=== PATIENT | female | born 1985 | race Caucasian/White ===

== ENCOUNTER 2017-06-08 12:31 | Emergency (ER) | payer OTHER ==
[2017-06-08 12:43] VITALS: BMI 19.9
[2017-06-08] MEDS ORDERED: Belladonna-Phenobarbital PO STA (13:17)
[2017-06-08] MEDS ORDERED: Lactated Ringer's 1,000 ML IVB STA (13:18)
[2017-06-08 13:48] LABS: BASO % 0.3 % (0.0-2.0); EOS # 0.1 K/uL (0.0-0.7); EOS % 1.6 % (0.0-4.0); HEMOGLOBIN 12.7 g/dL (11.0-16.0); LYMPH # 1.3 K/uL (1.0-4.3); LYMPH % 15.3 % (20.0-40.0); MEAN CELL VOLUME 88.6 fL (81.0-99.0); MEAN CORPUSCULAR HEMOGLOBIN 29.6 pg (27.0-31.0); MEAN CORPUSCULAR HGB CONC 33.5 g/dL (33.0-37.0); MEAN PLATELET VOLUME 7.9 fL (7.2-11.7); MONO # 0.5 K/uL (0.0-0.8); MONO % 5.9 % (0.0-10.0); NEUT # 6.5 K/uL (1.8-7.0); NEUT % 76.9 % (50.0-75.0); RBC 4.3 Mil/uL (3.80-5.20); RED CELL DISTRIBUTION WIDTH 13.8 % (11.5-14.5); WHITE BLOOD COUNT 8.5 K/uL (4.8-10.8)
[2017-06-08 13:49] LABS: HCG,QUALITATIVE URINE NEGATIVE (NEGATIVE)
[2017-06-08 13:51] LABS: SQUAMOUS EPITHIAL 1 /hpf (0-5); URINE BILIRUBIN NEGATIVE (NEGATIVE); URINE BLOOD NEGATIVE (NEGATIVE); URINE CLARITY Clear (Clear); URINE COLOR Yellow (YELLOW); URINE GLUCOSE (UA) NORMAL (Normal); URINE LEUKOCYTE ESTERASE NEG Leu/uL (Negative); URINE PROTEIN NEGATIVE (NEGATIVE)
[2017-06-08] MEDS ORDERED: Belladonna-Phenobarbital ONE (13:54)
[2017-06-08] MEDS ORDERED: Lactated Ringer's 1,000 ML ONE (13:54)
--- NOTE | 2017-06-08 14:05 | C.PDOC ---
Time Seen by Provider: 06/08/17 13:07 Chief Complaint (Nursing): GI Problem History Per: Patient Onset/Duration Of Symptoms: Days (about 1 week) Current Symptoms Are (Timing): Still Present Context: Travel Severity: Moderate Location Of Pain/Discomfort: Diffuse Radiation Of Pain To:: None Quality Of Discomfort: Cramping Associated Symptoms: Nausea, Vomiting (since yesterday), Diarrhea (watery) Exacerbating Factors: Food Alleviating Factors: None Last Bowel Movement: Today Recent travel outside of the [place]: Yes ([place]) Additional History Per: Prior Records Past Medical History Reviewed: Historical Data, Nursing Documentation, Vital Signs Vital Signs: Last Vital Signs Temp 98.6 F 06/08/17 12:44 Pulse 107 H 06/08/17 12:44 Resp 20 06/08/17 12:44 BP 101/71 06/08/17 12:44 Pulse Ox 100 06/08/17 14:05 - Medical History PMH: Kidney Stones - [facility] Procedures CYSTOSCOPY NEC (01/31/14) TU REMOV URETER OBSTRUCT (02/26/14) URETERAL CATHETERIZATION (01/31/14) URETEROSCOPY (02/26/14) Family History: States: Unknown Family Hx - Social History Hx Tobacco Use: Yes Hx Alcohol Use: Yes Hx Substance Use: No - Immunization History Hx Tetanus Toxoid Vaccination: No Hx Influenza Vaccination: No Hx Pneumococcal Vaccination: No Review Of Systems Except As Marked, All Systems Reviewed And Found Negative. Constitutional: Negative for: Weakness Cardiovascular: Negative for: Chest Pain Respiratory: Negative for: Shortness of Breath Gastrointestinal: Positive for: Nausea, Vomiting, Abdominal Pain, Diarrhea. Negative for: Melena, Hematochezia, Hematemesis Genitourinary: Negative for: Dysuria Musculoskeletal: Negative for: Neck Pain, Back Pain Skin: Negative for: Rash Neurological: Negative for: Weakness, Numbness Physical Exam - Physical Exam Appears: Non-toxic, No Acute Distress Skin: Normal Color, Warm, Dry, No Rash Head: Atraumatic, Normacephalic Eye(s): bilateral: Normal Inspection, PERRL, EOMI Neck: Normal ROM, Supple Cardiovascular: Rhythm Regular Respiratory: Normal Breath Sounds, No Accessory Muscle Use Gastrointestinal/Abdominal: Soft, No Tenderness, No Distention Back: No CVA Tenderness Extremity: Normal ROM Neurological/Psych: Oriented x3, Normal Motor, Normal Sensation ED Course And Treatment - Laboratory Results Result Diagrams: 06/08/17 13:40 06/08/17 13:40 Lab Interpretation: No Acute Changes Urine POC: Negative O2 Sat by Pulse Oximetry: 100 Pulse Ox Interpretation: Normal Reassessment Condition: Improved Progress - Interventions Interventions:: Observation, Intravenous fluid - Medications Administered Intravenous: Antiemetic - Data Reviewed Data Reviewed: Lab, Old records - Patient Status Patient status: Mostly improved - Continuity of Care Discussed patient case with:: Patient, ED Nurse - Patient Plan Patient Plan: Discharge, F/U with PCP Disposition Counseled Patient/Family Regarding: Studies Performed, Diagnosis, Need For Followup, Rx Given - Disposition Disposition: HOME/ ROUTINE Disposition Time: 14:30 Condition: IMPROVED Additional Instructions: Drink plenty of fluids. Follow up with your doctor. Return to the ER if you develop bloody diarrhea, not tolerating fluids, worsening of symptoms or if you have any other concerns. Prescriptions: Bismuth Subsalicylate [Pepto Bismol] 2 tab PO Q1 PRN #16 ctb PRN Reason: Diarrhea Ciprofloxacin [Cipro] 1 tab PO BID #8 tab Metoclopramide [Reglan] 1 tab PO TID PRN #15 tab PRN Reason: Nausea/Vomiting Instructions: Diarrhea and Traveler's Diarrhea, Adult (DC) Forms: [employer] (Romansh) - Clinical Impression Clinical Impression: Gastroenteritis
[2017-06-08 14:20] LABS: ALB/GLOB RATIO 1.1 (1.0-2.1); ALBUMIN 3.9 g/dL (3.5-5.0); ALT/SGPT 7 U/L (9-52); AST/SGOT 23 U/L (14-36); BLOOD UREA NITROGEN 12 mg/dL (7-17); CALCIUM 8.7 mg/dl (8.6-10.4); GFR AFRICAN-AMERICAN > 60; GFR NON-AFRICAN AMERICAN > 60; LIPASE 100 U/L (23-300)
[2017-06-08 14:57] VITALS: BP 104/70; PULSE 94; RESP 18; TEMP 98.2; O2SAT 98
== END 2017-06-08 14:55 | disposition home or self-care (01) ==
LOC: C.ER 12:31
DX: K52.9 Noninfective gastroenteritis and colitis, unspecified (principal); Z72.0 Tobacco use
CPT/HCPCS: 80053; 81001; 83690; 84703; 85025; 96374; 99284; J2405; J7120

== ENCOUNTER 2017-08-28 17:36 | Emergency (ER) | payer OTHER ==
[2017-08-28 17:36] VITALS: BMI 19.9
[2017-08-28] MEDS ORDERED: Sodium Chloride 0.9% 1,000 ML IV ONE (18:37)
[2017-08-28 18:54] LABS: SQUAMOUS EPITHIAL 4 /hpf (0-5); URINE BILIRUBIN NEGATIVE (NEGATIVE); URINE BLOOD NEGATIVE (NEGATIVE); URINE CLARITY Hazy (Clear); URINE COLOR Yellow (YELLOW); URINE GLUCOSE (UA) NORMAL (Normal); URINE LEUKOCYTE ESTERASE NEG Leu/uL (Negative); URINE PROTEIN NEGATIVE (NEGATIVE); URINE UROBILINOGEN NORMAL mg/dL (0.2-1.0)
--- NOTE | 2017-08-28 18:57 | C.PDOC ---
History Of Present Illness 32 year old female presents to the ED for evaluation of abdominal pain. Patient states her last period was in mid-July. Patient took two tests at home , which were both negative. Patient denies fever, chills. Surgical history includes one . Patient has history of kidney stones. She denies allergies. Patient states she smokes around 5 cigarettes/day. Denies alcohol use. Time Seen by Provider: 08/28/17 18:12 Chief Complaint (Nursing): Abdominal Pain History Per: Patient History/Exam Limitations: no limitations Onset/Duration Of Symptoms: Days Current Symptoms Are (Timing): Still Present Location Of Pain/Discomfort: Diffuse Quality Of Discomfort: "Pain" Additional History Per: Patient Abnormal Vaginal Bleeding: No Past Medical History Reviewed: Historical Data, Nursing Documentation, Vital Signs Vital Signs: Last Vital Signs Temp 98.7 F 08/28/17 22:01 Pulse 71 08/28/17 22:01 Resp 18 08/28/17 22:01 BP 101/64 08/28/17 22:01 Pulse Ox 97 08/28/17 22:01 - Medical History PMH: Kidney Stones - [facility] Procedures CYSTOSCOPY NEC (01/31/14) TU REMOV URETER OBSTRUCT (02/26/14) URETERAL CATHETERIZATION (01/31/14) URETEROSCOPY (02/26/14) Family History: States: Unknown Family Hx - Social History Hx Tobacco Use: Yes Hx Alcohol Use: Yes Hx Substance Use: Yes - Immunization History Hx Tetanus Toxoid Vaccination: (unk) Hx Influenza Vaccination: No Hx Pneumococcal Vaccination: (unk) Review Of Systems Constitutional: Negative for: Fever, Chills ENT: Negative for: Ear Pain Cardiovascular: Negative for: Chest Pain, Palpitations Respiratory: Negative for: Cough, Shortness of Breath Gastrointestinal: Positive for: Nausea, Abdominal Pain Genitourinary: Negative for: Dysuria, Frequency, Incontinence Musculoskeletal: Negative for: Neck Pain, Shoulder Pain Skin: Negative for: Rash Neurological: Negative for: Weakness Physical Exam - Physical Exam Appears: Non-toxic, No Acute Distress Skin: Normal Color, Warm, Dry Head: Atraumatic, Normacephalic Eye(s): bilateral: Normal Inspection, PERRL, EOMI Ear(s): Bilateral: Normal Nose: Normal Oral Mucosa: Moist Tongue: Normal Appearing Gingiva: Normal Appearing Throat: Normal Neck: Normal, Supple Chest: Symmetrical, No Deformity, No Tenderness Cardiovascular: Rhythm Regular Respiratory: Normal Breath Sounds Gastrointestinal/Abdominal: Soft, No Tenderness, No Guarding, No Rebound Pelvic: Adnexal Tenderness (right, lower ) Extremity: Normal ROM, Capillary Refill (less than 2 seconds ) Neurological/Psych: Oriented x3, Normal Speech, Normal Cognition ED Course And Treatment - Laboratory Results Result Diagrams: 08/28/17 19:00 08/28/17 19:00 O2 Sat by Pulse Oximetry: 100 (on RA) Pulse Ox Interpretation: Normal - CT Scan/US ultrasound Other Rad Studies (CT/US): Read By Radiologist, Radiology Report Reviewed CT/US Interpretation: EXAM: US Pelvis Complete, Transabdominal. CLINICAL HISTORY: 32 years old, female; Pain; Abdominal pain; Other: Not specified; Additional info: Abd pain in early. . TECHNIQUE: Real-time transabdominal pelvic ultrasound (complete) with image documentation. COMPARISON: No relevant prior studies available. FINDINGS: Uterus/cervix: The examination is negative for intrauterine gestational sac. Anteflexed uterus. Heterogenous endometrial stripe thickness 27 mm. No myometrial mass. 8.4 cm x. 6.1 cm x 6.5 cm. There is cervical myometrial cysts present. The cervix measures 3.5 cm. Right ovary: Unremarkable. No mass. Normal blood flow. RIGHT ovary measures 3.4 cm x 2 cm x 2.5 cm. Left ovary: Unremarkable. No mass. Normal blood flow. 2.5 cm x 1.7 cm x 2.3 cm. Free fluid: No free fluid. IMPRESSION: 1. Negative for intrauterine gestational sac. 2. Thick heterogenous endometrial tissues. 3. Cervical myometrial cyst. 4. Negative examination of the ovaries Medical Decision Making Medical Decision Making: Progress: Bloodwork, urinalysis, OB transvaginal ultrasound ordered and reviewed. IV Fluids given. Patient has Beta count of 185. Urine and rest of lab results are negative. Pending ultrasound read. labs reviewed. beta 185. no obvious iup or adnexal pt to return in two days for repeat beta hcg and pelvic u/s. Disposition Counseled Patient/Family Regarding: Diagnosis, Need For Followup - Disposition [facility] Disposition: HOME/ ROUTINE Disposition Time: 18:56 Condition: GUARDED Additional Instructions: return immediately to rule out ectopic Instructions: Ectopic , Bleeding With (DC), - The First Month, - The Second Month Forms: [facility] (Hebrew) - Clinical Impression Clinical Impression: Abdominal wall pain, Abdominal pain affecting , Abdominal pain, Early stage of , Threatened , Ectopic of ovary
[2017-08-28 19:06] LABS: HEMOGLOBIN 12.5 g/dL (11.0-16.0)
[2017-08-28 19:16] LABS: BASO % 0.4 % (0.0-2.0); EOS # 0.1 K/uL (0.0-0.7); LYMPH # 2.2 K/uL (1.0-4.3); LYMPH % 18.6 % (20.0-40.0); MEAN CELL VOLUME 86.8 fL (81.0-99.0); MEAN CORPUSCULAR HEMOGLOBIN 28.5 pg (27.0-31.0); MEAN CORPUSCULAR HGB CONC 32.9 g/dL (33.0-37.0); MEAN PLATELET VOLUME 8.1 fL (7.2-11.7); MONO # 0.6 K/uL (0.0-0.8); MONO % 4.7 % (0.0-10.0); NEUT % 75.3 % (50.0-75.0); NRBC % 0.1 % (0.0-2.0); RBC 4.39 Mil/uL (3.80-5.20); RED CELL DISTRIBUTION WIDTH 14.3 % (11.5-14.5); WHITE BLOOD COUNT 11.9 K/uL (4.8-10.8)
[2017-08-28 19:24] LABS: ALB/GLOB RATIO 1.4 (1.0-2.1); ALBUMIN 4.1 g/dL (3.5-5.0); ALT/SGPT 24 U/L (9-52); AST/SGOT 17 U/L (14-36); BLOOD UREA NITROGEN 8 mg/dL (7-17); CALCIUM 9.8 mg/dl (8.6-10.4); GFR AFRICAN-AMERICAN > 60; GFR NON-AFRICAN AMERICAN > 60
[2017-08-28 19:58] VITALS: RESP 18
[2017-08-28 22:02] VITALS: BP 101/64; PULSE 71; TEMP 98.7
[2017-08-29 01:14] VITALS: O2SAT 100
--- NOTE | 2017-08-29 10:26 | US ---
Date of service: 08/28/2017 HISTORY: abd pain in early LMP: July Serum beta HCG 185.8 COMPARISON: None available. TECHNIQUE: Grayscale, color Doppler and spectral evaluation the pelvis performed transabdominally and transvaginally. FINDINGS: UTERUS: Measures 8.5 x 6.2 x 6.6 cm. Normal in size and appearance. No intrauterine gestation identified. No fibroid or other mass lesion seen. ENDOMETRIUM: Measures 23 mm in diameter. Unremarkable. CERVIX: No cervical abnormality identified. RIGHT OVARY: Measures 3.4 x 2.0 x 2.5 cm. No solid mass. Normal flow. LEFT OVARY: Measures 2.5 x 1.7 x 2.3 cm. No solid mass. Normal flow. FREE FLUID: No significant free fluid noted. OTHER FINDINGS: None. IMPRESSION: No intrauterine gestation identified. Findings may represent early normal/ abnormal with ectopic not excluded. Close clinical follow-up with serial pelvic sonography and serum beta HCG levels is recommended.
== END 2017-08-28 22:05 | disposition home or self-care (01) ==
LOC: C.ER 17:36
DX: O00.209 Unspecified ovarian pregnancy without intrauterine pregnancy (principal); R10.9 Unspecified abdominal pain; Z3A.00 Weeks of gestation of pregnancy not specified